=== PATIENT | female | born 1965 | race Two or more races ===

== ENCOUNTER 2017-05-11 21:59 | Emergency (ER) | payer BC ==
[~2017-05-11] VITALS: Ht 165.1 cm; Wt 81.6 kg
[2017-05-11 22:14] VITALS: BP 152/96
[2017-05-12] MEDS ORDERED: IBUPROFEN 600 MG TAB PO ONE (01:30)
== END 2017-05-12 02:51 | disposition home or self-care (01) ==
LOC: EDUNIT# 21:59 → EDBD 21:59 → ER 22:05
DX: S62.343A Nondisplaced fracture of base of third metacarpal bone, left hand, initial encounter for closed fracture (principal); S62.341A Nondisplaced fracture of base of second metacarpal bone, left hand, initial encounter for closed fracture; S93.402A Sprain of unspecified ligament of left ankle, initial encounter; S80.02XA Contusion of left knee, initial encounter; V03.99XA Pedestrian with other conveyance injured in collision with car, pick-up truck or van, unspecified whether traffic or nontraffic accident, initial encounter; Y93.89 Activity, other specified; Y92.89 Other specified places as the place of occurrence of the external cause; Y99.8 Other external cause status
CPT/HCPCS: 29125; 29505; 73130; 73562; 73610